=== PATIENT | male | born 1995 | race Caucasian/White ===

== ENCOUNTER 2018-07-07 18:53 | Emergency (ER) | payer OTHER ==
[2018-07-07 19:11] VITALS: BP 142/79; PULSE 70; TEMP 98.9; BMI 28.1
--- NOTE | 2018-07-07 19:12 | PDOC ---
History of Present Illness - General History Source: Patient, Family Exam Limitations: No Limitations - History of Present Illness Initial Comments: 07/07/18 19:41 The patient is a 23 year old male, with no significant past medical history, who presents to the ED complaining of right ribcage pain onset today. He notes that he was brushing his teeth when he suddenly got the pain on the right side. He notes that he took 3 advils today with little to no relief of his pain. He notes that certain movements, they way he sits and taking a deep breath exacerbates his pain. He notes that the pain ranges from mild to moderate. He denies any kind of radiation. He notes that he has never had this kind of pain before. He works as a information technology security analyst for the [employer] and denies any recent extraneous physical activities. He denies any recent cough or fall. The patient denies chest pain, shortness of breath, headache and dizziness. Denies fever, chills, nausea, vomiting, diarrhea or constipation. Allergies: None Past surgical history: Cholecystectomy Social History: Marijuana use. No alcohol use. <Lenard Manriquez - Last Filed: 07/07/18 19:41> <Fabiana Whitfield - Last Filed: 07/08/18 03:31> - General Chief Complaint: Pain Stated Complaint: RT BACK, RT RIBCAGE PAIN Time Seen by Provider: 07/07/18 19:12 Past History <Lenard Manriquez - Last Filed: 07/07/18 19:41> - Past Medical History Asthma: No COPD: No Other medical history: PT DENIES - Surgical History Cholecystectomy: Yes - Immunization History Immunization Up to Date: Yes - Suicide/Smoking/Psychosocial Hx Smoking Status: No Smoking History: Never smoked Have you smoked in the past 12 months: Yes Number of Cigarettes Smoked Daily: 0 Information on smoking cessation initiated: Yes Hx Alcohol Use: (occasional) Drug/Substance Use Hx: No <Fabiana Whitfield - Last Filed: 07/08/18 03:31> - Past Medical History Allergies/Adverse Reactions: Allergies Allergy/AdvReac Type Severity Reaction Status Date / Time No Known Allergies Allergy Verified 07/07/18 18:54 Home Medications: Ambulatory Orders Diclofenac Sodium [Voltaren -] 75 mg PO BID PRN #20 tablet. 07/07/18 Ibuprofen [Advil -] 200 mg PO ASDIR 07/07/18 Trauma Specific PMHX - Complaint Specific PMHX Arthritis: No Back Injury: No Neck Injury: No Hx Sacro Iliac Joint Dysfunction: No <Fabiana Whitfield - Last Filed: 07/08/18 03:31> Review of Systems - Review of Systems Able to Perform ROS?: Yes Comments:: 07/07/18 19:41 GENERAL/CONSTITUTIONAL: No fever or chills. No weakness. HEAD, EYES, EARS, NOSE AND THROAT: No change in vision. No ear pain or discharge. No sore throat. GASTROINTESTINAL: No nausea, vomiting, diarrhea or constipation. GENITOURINARY: No dysuria, frequency, or change in urination. CARDIOVASCULAR: No chest pain or shortness of breath. RESPIRATORY: No cough, wheezing, or hemoptysis. MUSCULOSKELETAL: (+) Right sided ribcage pain. SKIN: No rash NEUROLOGIC: No headache, vertigo, loss of consciousness, or change in strength/ sensation. ENDOCRINE: No increased thirst. No abnormal weight change. HEMATOLOGIC/LYMPHATIC: No anemia, easy bleeding, or history of blood clots. ALLERGIC/IMMUNOLOGIC: No hives or skin allergy. <Lenard Manriuqez - Last Filed: 07/07/18 19:41> *Physical Exam - Vital Signs Last Vital Signs Temp Pulse Resp BP Pulse Ox 98.9 F 70 18 142/79 100 07/07/18 18:53 07/07/18 18:53 07/07/18 18:53 07/07/18 18:53 07/07/18 18:53 - Physical Exam Comments: 07/07/18 19:41 Constitutional: Awake, alert, oriented. No acute distress. Head: Normocephalic. Atraumatic Neck: Supple. Full ROM. No lymphadenopathy. Cardiovascular: Regular rate. Regular rhythm. S1, S2 regular. Distal pulses are 2+ and symmetric. Pulmonary/Chest: No evidence of respiratory distress. (+) Mild decrease breath sounds at the left base. Abdominal: Soft and non-distended. There is no tenderness. No rebound, guarding or rigidity. No organomegaly. No palpable masses. Good bowel sounds. Back: (+) Tenderness of the 4th rib and the 4th intercoastal space extending from anterior axillary line to posterior axillary line, without step off palpated. Musculoskeletal: No edema. No cyanosis. No clubbing. Full range of motion in all extremities. Nocalf tenderness. Radial/pedal pulses are intact and 2+ bilaterally Skin: Skin is warm and dry. No petechiae. No purpura. Neurological: Alert and oriented to person, place, and time. Cranial nerves II -XII are grossly intact. Normal speech. Strength is grossly symmetric. No sensory deficits. Psychiatric: Good eye contact. Normal interaction, affect and behavior. <Lenard Manriquez - Last Filed: 07/07/18 19:41> - Vital Signs Last Vital Signs Temp Pulse Resp BP Pulse Ox 98.9 F 70 18 142/79 100 07/07/18 18:53 07/07/18 18:53 07/07/18 18:53 07/07/18 18:53 07/07/18 18:53 <Fabiana Whitfield - Last Filed: 07/08/18 03:31> Progress Note - Progress Note Progress Note: Documentation has been prepared under my direction and personally reviewed by me in its entirety. I attest that this documented accurately reflects all work, treatment, procedures and medical decision making performed by me. <Fabiana Whitfield - Last Filed: 07/08/18 03:31> Medical Decision Making - Medical Decision Making As noted above, this 23-year-old man, otherwise healthy except for cholecystectomy as a teenager, presents with right lateral chest wall pain for one day. Patient denies history of trauma or overuse. Exam, as noted reveals tenderness and a limited area of the right middle lateral chest wall. No step- offs or crepitus appreciated. Patient is comfortable, speaking in full sentences and his pulse oximetry is 100% on room air. Chest x-ray, PA and lateral performed. Formal interpretation by Dr. Coronel of the radiology staff: No evidence of acute process within the lungs; no other acute abnormalities evident. Clinical presentation most consistent with chest wall muscle strain. Patient will be given documentation not to work tomorrow; prescription for diclofenac 75 mg twice a day as needed for pain (take with food) sent to pharmacy. Patient has no primary care physician and will be given 's referral information. He should follow-up within the next week. He should return to the emergency room if he has severe symptoms <Fabiana Whitfield - Last Filed: 07/08/18 03:31> *DC/Admit/Observation/Transfer - Attestations Scribe Attestion: 07/07/18 19:41 Documentation prepared by Lenard Manriquez, acting as er medical technician for Fabiana Whitfield MD <Lenard Manriquez - Last Filed: 07/07/18 19:41> <Fabiana Whitfield - Last Filed: 07/08/18 03:31> Diagnosis at time of Disposition: Chest wall muscle strain Qualifiers: Encounter type: initial encounter Qualified Code(s): S29.011A - Strain of muscle and tendon of front wall of thorax, initial encounter - Discharge Dispostion Disposition: HOME Condition at time of disposition: Stable - Prescriptions Prescriptions: Diclofenac Sodium [Voltaren -] 75 mg PO BID PRN #20 tablet.dr CURTIS Reason: Pain - Referrals Referrals: Beni Saez MD [Staff Physician] - - Patient Instructions Printed Discharge Instructions: DI for Atypical Chest Pain Additional Instructions: Avoid strenuous activity involving upper body for the next 5 days No work tomorrow Diclofenac 75 mg twice a day as needed; take with food Return to ER if you have severe pain/shortness of breath/fever Follow-up with within the next 5-7 days days - Post Discharge Activity Forms/Work/School Notes: Back to Work
== END 2018-07-07 21:11 | disposition home or self-care (01) ==
LOC: FER 18:53
DX: S29.011A Strain of muscle and tendon of front wall of thorax, initial encounter (principal); X58.XXXA Exposure to other specified factors, initial encounter; Y93.89 Activity, other specified; Y92.9 Unspecified place or not applicable
CPT/HCPCS: 71046-TC-FY; 99283-25

== ENCOUNTER 2019-08-01 23:31 | Emergency (ER) | payer OTHER ==
[2019-08-02 00:04] VITALS: BP 144/71; PULSE 79; TEMP 98.7; BMI 28.7
--- NOTE | 2019-08-02 00:38 | PDOC ---
*Physical Exam - Vital Signs Last Vital Signs Temp Pulse Resp BP Pulse Ox 98.7 F 79 19 144/71 97 08/01/19 23:35 08/01/19 23:35 08/01/19 23:35 08/01/19 23:35 08/01/19 23:35 Medical Decision Making - Medical Decision Making 08/02/19 00:38 Patient seen by the advanced practice provider under my direct supervision. Ancillary testing reviewed as necessary. I agree with plan as outlined by the advanced practice provider. Discharge - Discharge Information Problems reviewed: Yes Clinical Impression/Diagnosis: Left wrist injury Qualifiers: Encounter type: initial encounter Qualified Code(s): S69.92XA - Unspecified injury of left wrist, hand and finger(s), initial encounter Injury of right thumb Qualifiers: Encounter type: initial encounter Qualified Code(s): S69.91XA - Unspecified injury of right wrist, hand and finger(s), initial encounter Condition: Fair Disposition: HOME - Follow up/Referral Referrals: Thony Valdez MD [Staff Physician] - 7 days - Patient Discharge Instructions Additional Instructions: apply ice to the area. follow up with your doctor as soon as possible. - Post Discharge Activity Work/Back to School Note: Back to Work
--- NOTE | 2019-08-02 00:55 | PDOC ---
History of Present Illness - General Chief Complaint: Pain, Acute Stated Complaint: FALL Time Seen by Provider: 08/02/19 00:36 History Source: Patient - History of Present Illness Initial Comments: 08/02/19 00:58 24 year old male s/p slip and fall c/o left wrist pain and swelling, and right thumb bruising. left wrist pain is worse with movement. right thumb has full rom no deformity no pmhx Past History - Past Medical History Allergies/Adverse Reactions: Allergies Allergy/AdvReac Type Severity Reaction Status Date / Time No Known Allergies Allergy Verified 08/02/19 00:04 Home Medications: Ambulatory Orders Diclofenac Sodium [Voltaren -] 75 mg PO BID PRN #20 tablet. 07/07/18 Ibuprofen [Advil -] 200 mg PO ASDIR 07/07/18 Asthma: No COPD: No - Surgical History Cholecystectomy: Yes - Immunization History Immunization Up to Date: Yes - Psycho Social/Smoking Cessation Hx Smoking Status: No Smoking History: Never smoked Have you smoked in the past 12 months: Yes Number of Cigarettes Smoked Daily: 0 Hx Alcohol Use: No Drug/Substance Use Hx: No Trauma Specific PMHX - Complaint Specific PMHX Arthritis: No Back Injury: No Neck Injury: No Hx Sacro Iliac Joint Dysfunction: No Review of Systems - Review of Systems Able to Perform ROS?: Yes Is the patient limited Mac[place] proficient: No Musculoskeletal: Yes: Other (wrist pain) *Physical Exam - Vital Signs Last Vital Signs Temp Pulse Resp BP Pulse Ox 98.7 F 79 19 144/71 97 08/01/19 23:35 08/01/19 23:35 08/01/19 23:35 08/01/19 23:35 08/01/19 23:35 - Physical Exam General Appearance: Yes: Appropriately Dressed Musculoskeletal: positive: Other (full rom no deformity, mild edema, right thumb full rom no edema) Neurologic: positive: Fully Oriented, Alert ED Progress Note - Progress Note Progress Note: 08/02/19 02:56 A: wrist injury p: xray: no acute fracture Discharge - Discharge Information Problems reviewed: Yes Clinical Impression/Diagnosis: Left wrist injury Qualifiers: Encounter type: initial encounter Qualified Code(s): S69.92XA - Unspecified injury of left wrist, hand and finger(s), initial encounter Injury of right thumb Qualifiers: Encounter type: initial encounter Qualified Code(s): S69.91XA - Unspecified injury of right wrist, hand and finger(s), initial encounter Condition: Fair Disposition: HOME - Follow up/Referral Referrals: Thony Valdez MD [Staff Physician] - 7 days - Patient Discharge Instructions Additional Instructions: apply ice to the area. follow up with your doctor as soon as possible. - Post Discharge Activity Work/Back to School Note: Back to Work
== END 2019-08-02 02:49 | disposition home or self-care (01) ==
LOC: JER 23:31
DX: S69.91XA Unspecified injury of right wrist, hand and finger(s), initial encounter (principal); S69.92XA Unspecified injury of left wrist, hand and finger(s), initial encounter; W00.0XXA Fall on same level due to ice and snow, initial encounter; Y93.89 Activity, other specified; Y92.89 Other specified places as the place of occurrence of the external cause
CPT/HCPCS: 73110-TC-LT-FY; 73130-TC-LT-FY; 73140-TC-RT-FY; 99283-25